=== PATIENT | female | born 1975 | race Caucasian/White ===

== ENCOUNTER → 2019-04-27 15:30 | Outpatient (CLI) | payer OTHER, SELFPAY ==
--- NOTE | 2019-04-27 15:30 | EMB_PTH ---
PATIENT: STEVE VOGT LOC: [facility] U#:[id number] AGE/SX: 50/F ROOM: RE04/27/[address]: Dr. Zurdo Dolan MD : 1975 BED: DIS: SPEC #: [id number] RECD: 04/27/19 17:43 STATUS: LACY KEREN #: [id number] DOM[facility]: 04/27/19 15:[address]: Zurdo Dolan DEPT: SURGICAL PATHOLOGY RECD BY: Bassam Goldberg Tissues: Endometrium, NOS Procedures: Surgery Specimen Level IV HEADER OPERATION: Endometrial biopsy PRE-OP DIAGNOSIS: N92.0 TISSUE SUBMITTED: Endometrial biopsy MICROSCOPIC DIAGNOSIS Endometrium, biopsy: Perimenstrual endometrium with glandular and stromal breakdown. AM:buffy 04/29/19 MICROSCOPIC DESCRIPTION Slides are reviewed. GROSS DESCRIPTION Received in fixative is one container labeled with the patient's name and designated EM biopsy. The specimen consists of multiple fragments of hemorrhagic soft tissue that in aggregate measure 3 x 2.5 x 0.3 cm. The specimen is totally submitted in one cassette. / ZULMA:buffy 04/28/19 TC:5 CPT: 14085
== END ==
PROVIDERS: Referring Provider Obstetrics & Gynecology; Visit Provider Obstetrics & Gynecology
DX: N92.0 Excessive and frequent menstruation with regular cycle (principal)
CPT/HCPCS: 88305

== ENCOUNTER 2019-08-30 06:18 | Day surgery (SDC) | payer OTHER, SELFPAY ==
[2019-08-23 11:46] LABS: Hematocrit 29.1 % (37-47); Hemoglobin 8.1 g/dL (12.0-15.0); Mean Corp Hgb Conc 27.8 g/dL (32-36); Mean Corpuscular Hgb 19.7 pg (27.0-32.0); Mean Corpuscular Volume 70.8 fL (81-99); Mean Platelet Vol. 10.5 fl (6.2-12.0); Platelet Count 346 K/mm3 (150-450); RBC Distribution Width CV 18.8 % (11.6-14.6); RBC Distribution Width SD 47.4 fl (35.1-43.9); Red Blood Count 4.11 M/mm3 (4.2-5.4); White Blood Count 6.3 K/mm3 (4.4-11.0)
[2019-08-23 11:51] LABS: International Normalized Ratio 1.1; Prothrombin Time (Protime)PT. 13.2 SECONDS (11.7-14.9)
[2019-08-23 11:52] LABS: Partial Thromboplast Time 21.1 Seconds (24.1-36.2)
[2019-08-23 13:07] LABS: Creatinine, Serum 0.74 mg/dL (0.55-1.02); EST Glomerular Filtration Rate 90 mL/min (>60); Est Glom Filt Rate - Afr Amer 109 mL/min (>60)
[2019-08-27 13:04] LABS: Probe Check PASS; Specimen Processing Control PASS
--- NOTE | 2019-08-29 19:33 | HP.PCM_ITS ---
History and Physical Date of Admission: 08/30/19 Surgical History and Physical Sharon Aguero, a 44 year old female 2 0 1 0 2, presents for RAVH/BS on August at 8:30. -- Menorrhagia; Submucous Fibroids; Blood Loss Anemia -- Menses are regular to heavy and monthly. She gets PMS and severe cramping that radiates down her leg. Reports she has a lot of clots and cramping with her menses. Heavy and Long Periods which began 1 - 2 years ago. Sharon claims it started gradually and has been present 1-2 years. It occurs with menses. It is located in the vagina.; It is located in the lower abdomen. Sharon characterizes the quality cramping. Sharon characterizes the quality heavy. Sharon characterizes the quality clots. Severity is moderate and not improving; Additional comments are: bleeding for up to 2 weeks with menses very heavy.; Additional comments are: TSH normal about 6 months ago at PCP. Additional comments are: U/S shows submucous fibroids. Additional comments are: EMBx OK. Pre-Op Hgb 8..1. MEDICATIONS HISTORY: Current medications prescribed by our practice are: 1. ferrous sulfate 325 mg (65 mg iron) tablet, One pill by mouth twice a day Patient is also takin. Advair Diskus 250 mcg-50 mcg/dose powder for inhalation, 1 puff daily prn 2. Ventolin HFA 90 mcg/actuation HFA Aerosol Inhaler, as needed 3. amlodipine 5 mg tablet, One tablet by mouth once daily 4. omeprazole 20 mg capsule,delayed release, One capsule by mouth once daily ALLERGIES: NKDA Infections - Chicken pox Illnesses - HTN, asthma and Acid Reflux Accidents - tripped carrying groceries 04/06, broke L radial head Hospitalizations - Childbirth and see surgery Review of Systems: GENERAL - Denies fever, or chills SKIN - Denies skin changes EYES - Denies visual changes EARS - Denies difficulty hearing NOSE - Denies nasal congestion or bleeding MOUTH - Denies sore throat or difficulty swallowing NECK - Denies pain or swelling RESPIRATORY - Denies shortness of breath or wheezing CARDIOVASCULAR - Denies palpitations or chest pain GASTROINTESTINAL - Denies nausea, vomiting, diarrhea, constipation GENITOURINARY - Denies dysuria, frequency of urination, incontinence of urine MUSCULOSKELETAL - Denies joint or muscle pain NEUROLOGICAL - Denies localized numbness or weakness PSYCHIATRIC - Denies depression or anxiety ENDOCRINE - Denies heat or cold intolerance, weight loss or gain HEMATO-IMMUNOLOGIC - Denies excesive bleeding with cuts SOCIAL HISTORY: Alcohol Use - denies drinking Smoking - denies smoking Diet - balanced Diet Lifestyle - moderate stress lifestyle and Exercise - regular Seat Belt Use - always 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 MENSTRUAL HISTORY: LMP Known?- DefiniteAmount/Duration - 7 to 10 days, Regularity - Regular, Frequency - monthly days, LMP - 08/09/19, Age Onset Menarche - 11 PAST PREGNANCIES: Total Pregnancies - 3; Full Term Pregnancies - 2; Premature - 0; Abortions, Induced - 0; Abortions, Spontaneous - 1; Ectopics - 0; Multiple Births - 0; Living Children - 2 SURGICAL HISTORY: 1. Radial head replacement of L broken elbow, 04/06 2. ACL surgery Lt knee 3 wks ago 07/12/2014 3. 08/09/1997 4. 03/16/2002 and Tubal PHYSICAL EXAM BP- 130/78 R Forearm, Sitting Temp- 98.2 Taken Orally Weight- 224.93159 lbs Height- 64 inch BMI:38.56 CONSTITUTIONAL - NAD, well nourished, and well developed SKIN - No rash, lesions, or ulcers HEENT - Normocephalic, PERRLA, EOMI NECK - No nodes, no nuchal rigidity and thyroid normal size and texture LYMPH NODES - Palpation of lymph nodes in neck and groins within normal limits LUNGS - CTA x2 without wheezes, crackles or rales CARDIAC - Regular rate and rhythm without rubs, murmurs, or gallops BREAST - No dominant masses, no tenderness, no axillary adenopathy, no nipple discharge, no skin changes ABDOMEN - Without hepatosplenomegaly, distention, masses, rebound, or guarding; normal bowel sounds; no hernias EXTREMITIES - No edema or calf tenderness NEUROLOGICAL - Cranial nerves II-XII grossly intact PSYCHIATRIC - A and O to time, place, person, mood and affect External Genitial Vagina - non-tender without lesions Urethra/Urethral Meatus - non-tender Bladder - non-tender Vagina - vaginal negron are pink and moist without loss of rugae and no evidence of atropy Cervix - without cervical motion tenderness and has normal size and features without evident lesions Uterus - multiparous size 6 cm & wt 75-125 g Adnexa - clear without massess or tenderness ASSESSMENT/PLAN: 1. Premenopause Menorrhagia and Submucous Leiomyoma Uterus Discussed options including expectant managnement, using OCPs, endometrial ablation (with limited expectation for success) or proceeding with RAVH/BS. Discussed RBAs of each. Desires we proceed with RAVH/BS. Discused RBAs and all questions answered. Procedure Criteria Procedure Type: Essential Procedure Essential: Yes Criteria Statement: On 06/08/2019 the [place] Department of Health ([facility]) Public Order signed by [facility] Director Yashira Ruiz M.D., regarding the Management of Non-Essential Surgeries and Procedures for the purpose of preserving Personal Protective Equipment (PPE) and critical hospital capacity and resources within [place] went into effect as of 06/09/2019 at 5:00PM. According to the [facility] Public Order: This action will remain in full force and effect until the State of Emergency declared by the Governor no longer exists or the Director of the [facility] rescinds or modifies this Order. This [facility] order stated all non-essential or elective surgeries and procedures that utilize PPE should be delayed unless there is undue risk to the current or future health of a patient. After reviewing the aforementioned [facility] Public Order and the patient's clinical case, I have determined that the scheduled procedure meets the criteria to go forward. Risk to Patient if Procedure Delayed: Risk of rapidly worsening to severe symptoms if delayed
[2019-08-30] VITALS (15 sets, daily range): BP systolic 105–139; BP diastolic 61–92; PULSE 92–114; RESP 14–20; TEMP 36.1–37.2; O2SAT 94–100; BMI 38.7
[2019-08-30] MEDS: Lactated Ringers 1,000 ML 100 ML IV ×3 (07:25→12:07)
[2019-08-30 07:50] LABS: Hematocrit 27.8 % (37-47); Hemoglobin 7.8 g/dL (12.0-15.0)
--- NOTE | 2019-08-30 08:30 | HYST_PTH ---
PATIENT: STEVE VOGT LOC[place] [facility] [place][id number] AGE/SX: 44/F ROOM: RE08/30/[address]: Dr. Zurdo Dolan MD : 1975 BED: DIS: 08/31/2019 SPEC #: [id number] RECD: 08/30/19 13:56 STATUS: LACY KEREN #: [id number] DOMINIC: 08/30/19 08:[address]: Zurdo Dolan DEPT: SURGICAL PATHOLOGY RECD BY: Dg Salazar ENTERED: 08/30/19 14:54 SP TYPE: HYSTERECT KAREN DR: Valentine Brewer, PHARMACY LABORATORY TECHNICIAN-C Tissues: Uterus, NOS Procedures: Surgery Specimen Level V HEADER OPERATION: Lap robotic hysterectomy, bilateral salpingectomy PRE-OP DIAGNOSIS: Premenopause menorrhagia and submucous leiomyoma uterus TISSUE SUBMITTED: Bilateral fallopian tubes, uterus and cervix MICROSCOPIC DIAGNOSIS Uterus, cervix, bilateral fallopian tubes, hysterectomy and bilateral salpingectomy: Cervix - mild chronic cystic cervicitis. Endometrium - secretory endometrium. Myometrium - submucosal and intramural leiomyomas (largest measuring 4 cm in greatest dimension). - focal adenomyosis. Bilateral fallopian tubes - status post tubal occlusion and mild hematosalpinx. SJ:rg 09/01/19 MICROSCOPIC DESCRIPTION Slides are reviewed. GROSS DESCRIPTION Received in fixative is one container labeled with the patient's name and designated bilateral fallopian tubes, uterus and cervix. The specimen consists of a hysterectomy specimen in multiple pieces consisting of uterus in multiple pieces, detached cervix and one detached fallopian tube and second fallopian tube attached to the largest piece of uterus. The uterus with cervix weighs in aggregate 248 gm. The detached cervix measures 4 x 3 x 2 cm. The ectocervical mucosa is focally congested. The external os is circular in contour. The endocervical canal measures 3 cm in length and the endocervical mucosa is unremarkable. Sections of the cervix reveal a few cysts filled with navarro to brownish mucoid tissue. The largest piece of uterus measures 9 x 7 x 9 cm. The detached pieces of uterus measures in aggregate 7 x 6 x 3 cm. The largest piece of the uterus shows endometrial cavity which measures 4 cm in length and 4 cm in width. The endometrium is navarro, focally ragged and without any mass lesion and measures 0.1 cm in thickness. Sections of the uterine wall reveal multiple nodular masses. The largest mass measures 4 cm in greatest dimension. The masses are submucosal and intramural in location. Sections of these masses reveal navarro whorled cut surfaces without areas of hemorrhage, necrosis or cystic degeneration. The uninvolved uterine wall measures up to 2 cm in thickness. The uterus and cervix could not be oriented due to fragmented nature of the specimen. The attached fallopian tube measures 5 cm in length and up to 1 cm in diameter. Fimbrial end is identified. It is interrupted in the middle. Sections of the proximal portion of the fallopian tube shows dilated lumen filled with bloody fluid. The detached fallopian tube is similar to attached fallopian tube and it is interrupted in the middle consistent with previous tubal occlusion. The proximal portion of the fallopian tube shows lumen filled with small amount of bloody fluid. Correspondence Review Clerk sections are submitted in 11 cassettes as follows: 1 & 2 - cervix, 3-6 - uterine wall, 7 - largest nodular mass, 8 - second largest nodular mass, 9 - smaller nodular masses, 10 & 11 - bilateral fallopian tubes with each cassette containing one fallopian tube. Section of uterine wall also contains the nodular masses. / ZULMA:buffy 08/31/19 TC:1 CPT: 58938
[2019-08-30] MEDS: Ropivacaine 0.5% 30 ML Vial (08:50)
--- NOTE | 2019-08-30 11:32 | PCM.OPRPT ---
Report of Operation Date of Procedure: 08/30/19 Pre-Operative Diagnosis: Menorrhagia, Submucous Fibroids, Blood Loss Anemia Post-Operative Diagnosis: Menorrhagia, Submucous Fibroids, Blood Loss Anemia, Adhesions Surgery/Procedure Performed:: Robotic Assisted Vaginal Hysterectomy and Bilateral Salpingectomy, Lysis of Adhesions Description of Surgical Findings:: 14 cm uterus with approximately a 5 cm right cervical submucous fibroid. Dense adhesions of the omentum to the anterior abdominal wall and possible small ventral hernia. practice support specialist: Rubio Nuñez Type of Anesthesia:: General - Endotracheal Anesthesiologist: Olimpia Mohr Specimen's removed: Uterus and bilateral fallopian tubes Drains: Wiseman to straight drain Estimated Blood Loss (mL): 50 cc Fluids Replaced: Crystalloid Description of Procedure: Surgeon: Zurdo Dolan MD, FACOG Indication: This is a 44 year old patient who has been having problems with extremely heavy menses and blood loss anemia. Hemoglobin just prior to the procedure was 7.8. Conservative measures have not been helpful. The patient has been counseled regarding the risks, benefits and alternatives of this procedure including the possibility of bleeding, infection, and injury to surrounding structures such as bowel bladder and all questions were answered. She understands that if BSO is needed that she will need to be on HRT for an indefinite period of time. Procedure: Pt taken to the operating room where, after induction of general anesthesia, the patient was prepped and draped in the usual sterile fashion and placed on a non-slip Huggy-u-vac device. Trendelenburg test was satisfactory. Bladder was drained of urine with a Wiseman catheter which was left in place. Anterior cervix grasped and cervix was dilated to about 3-4 mm. Uterus sounded to 14 cms. 0-Vicryl suture was placed at the 3:00 and 9:00 position of the cervix. A small Advincula Library Science Instructor Uterine Manipulator was then placed in the uterus and attention was turned to the laparoscopic portion of the procedure. Ropivocaine 0.5% was injected approximately 3 cm superior to the umbilicus and an 8 mm robotic camera port was introduced directly with intraperitoneal placement confirmed with CO2 insufflation. 8 mm robotic side ports were introduced under direct visualization approximately 11 cm lateral and 2 cm inferior to the umbilical port. A 5 mm left upper quadrant port was introduced and airseal insufflation with CO2 was started. The above findings were noted. Enseal device was used to take down adhesions under direct visualization. After clearing the adhesions, robot was docked without difficulty and attention turned to the robotic portion of the procedure. Approximately 30 cc of Ropivicaine was used. Bilateral infundibulopelvic ligaments/mesosalpinx were ligated with 45 sinclair bipolar coagulation to the level of the round ligament. The posterior aspect of the cervix was identified and then opened for about 1 cm using 25 watt monopolar cautery. Bladder flap was opened and divided to the level of the round ligaments using monopolar cautery. Progressive bites were then ligated on each side of the cervix with 35 sinclair bipolar cautery to the uterine arteries. The anterior vaginal mucosa was entered and cervix circumscribed with monopolar cautery. Uterus and attached tubes were removed through the vagina. It was necessary to remove the uterus in pieces due to it being too large to fit through the vaginal cuff. After the uterus was removed, the vaginal cuff was closed first with 0-Vicryl Elena stitches placed at each angle followed by closure of the mid-cuff with 0-Monocryl V-lock suture in two layers. Pelvis was copiously irrigated with saline and the right ureter was noted to peristalse. There was noted to be a small amount of oozing from the vaginal cuff so Lucinda was placed across this area to help with postoperative hemostasis. Robot was undocked and trocars were removed with as much gas as possible. Incisions were closed with 4-0 Monocryl subcuticular sutures and incisions covered with steri-strips. The patient tolerated the procedure well and was taken to the recovery room in satisfactory condition. Sponge, instruments and needle counts were all correct. There were no apparent complications of the surgery. Cefotan 2 gms IV was given prior to the procedure. Estimated Blood Loss: Minimal Specimen to Pathology: Uterus and bilateral fallopian tubes Grafts/Implants Used: None - Complications None - Admit VTE Documentation VTE Present on Admission: Yes VTE Mechan Device Prophylaxis: SCD's VTE Pharm Prophylaxis ordered?: Yes
--- NOTE | 2019-08-30 11:41 | DCINST_ITS ---
Discharge Diet: No Restrictions Discharge Activity: Return to Normal Activity, May Not Drive - while taking narcotic pain medications., May Shower, May Take a Tub Bath May resume sexual activity in: 6-8 weeks Call your doctor if your incision/area has: Continuous Slow Oozing, Sudden Inc reased Bleeding, Increased Pain/ Swelling, Increased Redness, Foul Smelling Discharge Call your doctor if you observe: Fever of 101 or Higher, Inability to urinate, Inability to have a bowel movement, Using more than one pad per hour Allergies/Adverse Reactions: Allergies No Known Allergies Allergy (Verified 08/23/19 09:12) Medications to take at Discharge Albuterol Inhaler [Ventolin Hfa (SP)] 1 puff INHALATION DAILY 08/23/19 Amlodipine [Norvasc] 5 mg PO QHS 08/23/19 Cyanocobalamin (Vitamin B-12) [Vitamin B-12] 500 mcg PO DAILY 08/23/19 Fluticasone/Salmeterol [Advair 250-50 Diskus] 1 puff IH QHS 08/23/19 Omeprazole 20 mg PO DAILY 08/23/19 Docusate Sodium [Colace] 100 mg PO BID PRN PRN #60 cap 08/30/19 Ferrous Sulfate [High Potency Iron] 65 mg PO BID 08/30/19 Oxycodone [Oxyir] 5 mg PO Q6H PRN PRN 7 Days #20 tablet 08/30/19 The following prescriptions were given: Docusate Sodium [Colace] 100 mg PO BID PRN PRN #60 cap PRN Reason: Constipation Transmission Status: Pending to [id number] Oxycodone [Oxyir] 5 mg PO Q6H PRN PRN 7 Days #20 tablet PRN Reason: Pain Score 6-10/10 Transmission Status: Sent to [facility] Primary Care Physician: Valentine Brewer NP-C [Primary Care Provider] - Test Results: Test results from this visit will be discussed in further detail at your follow- up appointment, if applicable. Please Follow Up With: Zurdo Dolan MD When: 2 to 3 weeks
[2019-08-30] MEDS: Dextrose 5%-Lactated Ringers 1,000 ML 150 ML IV ×2 (14:30→23:12)
[2019-08-30] MEDS: Ketorolac 30 MG/ML Syringe IV ×2 (14:33→21:33)
[2019-08-30] MEDS: 0.9% Saline Lock 10 ML Syringe IV ×2 (14:33→21:33)
--- NOTE | 2019-08-30 16:15 | NURSING ---
pt states that staff does not need to call her daughter- as she already has spoken to her.
[2019-08-30] MEDS: oxyCODONE 5 MG Tablet PO (18:46)
[2019-08-30] MEDS: Enoxaparin 40 MG/0.4 ML Syringe SC (18:46)
[2019-08-30] MEDS: Albuterol 2.5 MG/3 ML VIAL.NEB. INHALATION (19:30)
[2019-08-30] MEDS: Budesonide Respules 0.5 MG/2 ML AMPUL.NEB. INHALATION (19:30)
[2019-08-30 20:22] LABS: Hematocrit 28.2 % (37-47)
[2019-08-30] MEDS: amLODIPine 5 MG Tablet PO (21:47)
[2019-08-31] MEDS: oxyCODONE 5 MG Tablet PO (00:50)
[2019-08-31 01:36] VITALS: BP 132/80; PULSE 107; RESP 18; TEMP 36.8; O2SAT 97
[2019-08-31 03:15] VITALS: O2SAT 86
[2019-08-31] MEDS: Ketorolac 30 MG/ML Syringe IV (04:26)
[2019-08-31 05:46] VITALS: BP 124/74; PULSE 106; RESP 18; TEMP 37; O2SAT 96
[2019-08-31 06:42] LABS: Hematocrit 26.4 % (37-47); Hemoglobin 7.3 g/dL (12.0-15.0); Mean Corp Hgb Conc 27.7 g/dL (32-36); Mean Corpuscular Hgb 21.3 pg (27.0-32.0); Mean Platelet Vol. 9.9 fl (6.2-12.0); POSITIVE MORPHOLOGY YES; Platelet Count 318 K/mm3 (150-450); RBC Distribution Width CV 25.6 % (11.6-14.6); RBC Distribution Width SD 49.4 fl (35.1-43.9); Red Blood Count 3.43 M/mm3 (4.2-5.4); White Blood Count 12.1 K/mm3 (4.4-11.0)
[2019-08-31 06:50] LABS: Scan Indicated on CBC? Y/N YES- FLAGS NOTED
[2019-08-31 07:06] LABS: Creatinine, Serum 0.57 mg/dL (0.55-1.02); EST Glomerular Filtration Rate 121 mL/min (>60); Est Glom Filt Rate - Afr Amer 147 mL/min (>60); Estimated Creatinine Clearance 108.76 ml/min
[2019-08-31 07:09] VITALS: PULSE 102; RESP 18; O2SAT 98
[2019-08-31] MEDS: Budesonide Respules 0.5 MG/2 ML AMPUL.NEB. INHALATION (07:09)
[2019-08-31] MEDS: Albuterol 2.5 MG/3 ML VIAL.NEB. INHALATION (07:09)
--- NOTE | 2019-08-31 08:10 | PN.OBGYN_ITS ---
Subjective: Patient without complaints. Tolerating diet well. Denies flatus. Denies orthostatic symptoms. Minimal vaginal bleeding. Pain well controlled. Ready to go home. Objective: Afebrile, vital signs stable. Wounds are clean, dry, intact. Good urine output. Hemoglobin stable and creatinine okay. - Physical Exam Vitals/I&O's: Vital Signs Temp Pulse Resp BP Pulse Ox 98.6 F 106 H 18 124/74 H 96 08/31/19 05:46 08/31/19 05:46 08/31/19 05:46 08/31/19 05:46 08/31/19 05:46 Oxygen Flow Rate (L/min) 1 Oxygen Delivery Method Nasal Cannula Weight: 225 lb 12.054 oz Body Mass Index (BMI) 38.7 Intake and Output for Last 24 Hours 08/29/19 08/30/19 08/31/19 23:59 23:59 23:59 Intake Total 5266.25 / 5266.25 1040 / 1040 Output Total 3050 / 3050 1300 / 1300 Balance 2216.25 / 2216.25 -260 / -260 Laboratory Results 08/30/19 20:10: Hgb 8.0 L, Hct 28.2 L 08/31/19 06:14: WBC 12.1 H, RBC 3.43 L, Hgb 7.3 L, Hct 26.4 L, MCV 77.0 L, MCH 21.3 L, MCHC 27.7 L, RDW Std Deviation 49.4 H, RDW Coeff of Lise 25.6 H, Plt Count 318, MPV 9.9, Differential Comment 08/31/19 06:14: Creatinine 0.57, Estim Creat Clear Calc 108.76, Est GFR (MDRD) Af Amer 147, Est GFR (MDRD) Non-Af 121 Current Medications Acetaminophen (Tylenol) 1,000 mg PO Q8H PRN PRN PRN Reason: Pain Score 1-3/10 or Fever Albuterol Sulfate (Ventolin Aerosols) 2.5 mg INHALATION Q6HWA.RT EM Last Admin: 08/31/19 07:09 Dose: 2.5 mg Documented by: Amlodipine Besylate (Norvasc) 5 mg PO QHS EM Last Admin: 08/30/19 21:47 Dose: 5 mg Documented by: Budesonide (Pulmicort Aerosol) 0.5 mg INHALATION Q12H.RT [facility] Last Admin: 08/31/19 07:09 Dose: 0.5 mg Documented by: Docusate Sodium (Colace) 100 mg PO BID PRN PRN PRN Reason: Constipation Hydromorphone HCl (Dilaudid Inj) 0.5 mg IV Q3H PRN PRN PRN Reason: Pain Score 4-10/10 Sodium Chloride () 250 mls @ 15 mls/hr IV .[id number] PRN PRN Reason: Saline Flush Last Infusion: 08/30/19 23:12 Dose: 0 mls/hr Documented by: Sodium Chloride () 250 mls @ 15 mls/hr IV .[id number] PRN PRN Reason: Additional IVPB Infusion Ketorolac Tromethamine (Toradol) 10 mg PO Q6H [facility] Stop: 09/04/19 10:31 Ondansetron HCl (Zofran) 4 mg IV Q4H PRN PRN PRN Reason: NAUSEA Oxycodone HCl (Oxyir) 5 mg PO Q4H PRN PRN PRN Reason: Pain Score 4-10/10 Last Admin: 08/31/19 00:50 Dose: 5 mg Documented by: Pantoprazole Sodium (Protonix) 20 mg PO DAILY [facility] Simethicone (Mylicon) 80 mg PO [facility] Last Admin: 08/30/19 21:47 Dose: 80 mg Documented by: Sodium Chloride () 10 - 40 ml IV UD PRN PRN Reason: SALINE FLUSH Last Admin: 08/30/19 21:33 Dose: 10 ml Documented by: Medical Necessity - Tobacco Use Smoking Status: Never smoker Tobacco Use: Non-smoker Assessment/Plan Doing well postoperative day #1 status post robotic assisted vaginal hysterectomy and bilateral salpingectomy. Will release to home with routine instructions. Emphasized continuing iron for approximately 6 to 8 weeks.
[2019-08-31] MEDS: Pantoprazole Sodium 20 MG Tablet PO (08:12)
[2019-08-31 08:17] VITALS: BP 124/69; PULSE 112; RESP 16; TEMP 36.8; O2SAT 93
[2019-08-31] MEDS: Ketorolac 10 MG Tablet PO (10:24)
== END 2019-08-31 11:10 | disposition home or self-care (01) ==
LOC: SDC 06:20 → AC 06:21 → MS3 07:35
PROVIDERS: Anesthesiology; PCP Nurse Practitioner Family; Referring Provider Obstetrics & Gynecology; Visit Provider Obstetrics & Gynecology
PROC: 0UT90ZZ Resection of Uterus, Open Approach (ICD-10-PCS; CPT 58552; principal; 2019-08-30 08:10)
DX: N92.4 Excessive bleeding in the premenopausal period (principal); D25.0 Submucous leiomyoma of uterus; D25.1 Intramural leiomyoma of uterus; D50.0 Iron deficiency anemia secondary to blood loss (chronic); N72 Inflammatory disease of cervix uteri; N80.0 Endometriosis of uterus; K66.0 Peritoneal adhesions (postprocedural) (postinfection); I10 Essential (primary) hypertension; J45.909 Unspecified asthma, uncomplicated; K21.9 Gastro-esophageal reflux disease without esophagitis; Z79.51 Long term (current) use of inhaled steroids; Z79.1 Long term (current) use of non-steroidal anti-inflammatories (NSAID); Z79.899 Other long term (current) drug therapy; Z11.59 Encounter for screening for other viral diseases
CPT/HCPCS: 00840; 58552; S2900; 36415; 82565; 85014; 85018; 85027; 85610; 85730; 86850; 86900; 86901; 87635; 88307; 94640; 99251; C9803; G2023; J7050; J7120; A4216; C1760; G0463; J2405; U0003

== ENCOUNTER → 2022-01-15 | Outpatient (CLI) | payer OTHER, SELFPAY ==
--- NOTE | 2022-01-15 15:45 | BI_ITS ---
MAMMOGRAPHY - BILATERAL SCREENING REASON FOR EXAM: Female, 46 years old. Routine annual screening examination. PERTINENT HISTORY: Non-contributory. TECHNIQUE: Digital bilateral breast pablo (3D mammographic acquisition) in the CC and MLO projections. 2-D mediolateral oblique (MLO) and craniocaudad (CC) views of both breasts were obtained. CAD: Full Field Digital Mammography with Computer Added Detection was performed. COMPARISON: None. Baseline examination. FINDINGS: Breast Composition: There are scattered areas of fibroglandular density. There are no dominant masses or suspicious calcifications. No other significant abnormalities are identified. BI/SCRN MAMM (CAD)W/PABLO BILAT IMPRESSION: Negative screening mammogram. Yearly followup mammogram recommended. (A) ASSESSMENT CATEGORY: BIRADS Category 1: Negative. A letter regarding these results will be sent to the patient by the facility within 30 days. Approximately 10% of breast cancers are not detected by mammography. A normal mammogram should not delay biopsy of a clinically suspicious abnormality. [id number] Electronically Signed: Otto Mejia MD at 8:23 EDT ,
== END | disposition home or self-care (01) ==
LOC: OPBI 15:43
PROVIDERS: Referring Provider Obstetrics & Gynecology; Visit Provider Obstetrics & Gynecology
DX: Z12.31 Encounter for screening mammogram for malignant neoplasm of breast (principal)
CPT/HCPCS: 77063; 77067

== ENCOUNTER → 2023-01-16 | Outpatient (CLI) | payer OTHER, SELFPAY ==
--- NOTE | 2023-01-16 07:37 | BI_ITS ---
MAMMOGRAPHY - BILATERAL SCREENING REASON FOR EXAM: Female, 47 years old. Routine annual screening examination. PERTINENT HISTORY: Non-contributory. TECHNIQUE: Digital bilateral breast pablo (3D mammographic acquisition) in the CC and MLO projections. 2-D mediolateral oblique (MLO) and craniocaudad (CC) views of both breasts were obtained. CAD: Full Field Digital Mammography with Computer Added Detection was performed. COMPARISON: Comparison is made with prior study January 15, 2022. FINDINGS: Breast Composition: There are scattered areas of fibroglandular density. There are no dominant masses or suspicious calcifications. Stable asymmetry of breast tissue were more breast tissue is seen in the upper-outer quadrant of the right breast as compared to the left side there stable small benign-appearing bilateral axillary lymph nodes. No other significant abnormalities are identified. There has been no significant change since the prior study. BI/SCRN MAMM (CAD)W/PABLO BILAT IMPRESSION: Stable bilateral screening mammogram. Yearly follow-up mammogram recommended. (A) ASSESSMENT CATEGORY: BIRADS Category 2: Benign. A letter regarding these results will be sent to the patient by the facility within 30 days. Approximately 10% of breast cancers are not detected by mammography. A normal mammogram should not delay biopsy of a clinically suspicious abnormality. [id number] Electronically Signed: Otto Mejia MD at 8:32 EDT ,
== END | disposition home or self-care (01) ==
LOC: OPBI 07:36
PROVIDERS: PCP Nurse Practitioner Family; Referring Provider Nurse Practitioner Family; Visit Provider Nurse Practitioner Family
DX: Z12.31 Encounter for screening mammogram for malignant neoplasm of breast (principal)
CPT/HCPCS: 77063; 77067